=== PATIENT | male | born 1985 | race African-American/Black ===

== ENCOUNTER 2016-09-18 15:41 | Emergency (ER) | payer SELFPAY ==
[2016-09-18] MEDS ORDERED: Benzocaine 20% Topical Spray UD MUCMEM ONE (16:10)
[2016-09-18] MEDS ORDERED: Lidocaine 2% Viscous Solution 15 ML Cup PO ONE (16:10)
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
[2016-09-18 17:05] VITALS: BP 117/73
== END 2016-09-18 16:30 | disposition home or self-care (01) ==
LOC: MW.ED 15:41
DX: K08.9 Disorder of teeth and supporting structures, unspecified (principal); M79.1 Myalgia; F17.210 Nicotine dependence, cigarettes, uncomplicated; V87.7XXA Person injured in collision between other specified motor vehicles (traffic), initial encounter
CPT/HCPCS: 99282; A9270; 99283